=== PATIENT | female | born 1970 | race African-American/Black ===

== ENCOUNTER 2018-04-06 06:14 | Observation (INO) | payer OTHER ==
[2018-04-06 06:31] VITALS: BMI 30.1
--- NOTE | 2018-04-06 07:41 | PDOC ---
Attending Attestation - Resident Resident Name: Steve Rod - ED Attending Attestation I have performed the following: I have examined & evaluated the patient, The case was reviewed & discussed with the resident, I agree w/resident's findings & plan, Exceptions are as noted - HPI HPI: 04/06/18 08:07 48y F no pmhx s/p breast reduction surgery and abdominoplasty on 03/22 presents with wanting her drains out. Pt states she was in a facility in [place] for the surgery and post op and then came back to [facility]. She also got prophlactic clindamycin that she completed. pt notes some aching in her breast and abdomen, and has only been taking some tylenol for pain. Pt notes she has had some discharge from her breast and has changing drsessings twice daily. Pt notes she had drains in her abdomen that has been producing approx 25cc of dark red discharge. Pt denies any fever/chills, increasing pain over the past few days, cough, sob, cp, n/v, back pain, dysuria, hematuria. GENERAL: The patient is awake, alert, and fully oriented, Nontoxic - in no acute distress. HEAD: Normocephalic, atraumatic. EYES: extraocular movements intact, sclera anicteric, conjunctiva clear. ENT: Normal voice, Moist mucous membranes. NECK: Normal range of motion, supple LUNGS: Breath sounds equal, clear to auscultation bilaterally. No wheezes, no rhonchi, no rales. HEART: tachycardic w/o any murmurs. ABDOMEN: Soft, nontender, normoactive bowel sounds. No guarding, no rebound. No CVA tenderness, abdominoplasty wounds - On R drain site, there is wound dehicense approx 4cm without surrounding erythema/inudration, discharge, L drain site is clear. EXTREMITIES: Normal range of motion, no edema. No clubbing or cyanosis. No cords, erythema, or tenderness. NEUROLOGICAL: No facial assymetry, Normal speech, PSYCH: Normal mood, normal affect. SKIN: induration/swelling underneath breasts along wound with whitish areas c/w necrosis bilaterally, AP - presenting 15 days s/p plastic surgery with evidence of wound dehicense and areas of induration/redness under her breasts concern for possible infection, HR 127, but afebrile - will give fluids will obtain blood cultures and wound cultures will reassess Surgeon - Dr. Gomez ([place]) [phone] - Physicial Exam PE: 04/06/18 16:58 see above - Medical Decision Making 04/06/18 12:43 Patient's ultrasound and noted for a collection Will admit the patient for further management and surgical consultation Heart Score/ECG Review - ECG Impressions Comment:: 04/06/18 12:46 Twelve-lead EKG was performed and reviewed by me. There is normal sinus rhythm with a normal rate. Rate of 97 The axis is normal. The intervals are normal. There is normal R wave progression There are no ST or T wave abnormalities. Impression: Normal twelve-lead EKG
[2018-04-06] MEDS ORDERED: SODIUM CHLORIDE 1,000 ML IV ONE (07:44)
--- NOTE | 2018-04-06 08:10 | PDOC ---
History of Present Illness - General Chief Complaint: Revisit,Wound Recheck Stated Complaint: WOUND PROBLEM, S/P SURGERY Time Seen by Provider: 04/06/18 07:08 History Source: Patient Exam Limitations: No Limitations - History of Present Illness Initial Comments: 04/06/18 08:04 The patient is a 48F with no PMH who presents to the ER with complaints of wound closure and drain removal. The patient states that she had an abdominoplasty and breast reduction on March 22, [address] Gomez in [place]. She describes an uncomplicated post-op course where she followed up at the [address] op [address] Gomez. She stayed in a "recover room" which is a facility staffed by MD's and RN's to check on her status during the 1 week post op. She says she had no complications. Over the past week, she states she's had increased drainage from her wounds and an opening on the R side of her abdominoplasty wound. She denies any pus drainage, tenderness, fever, chills, nausea, vomiting, CP, SOB. Past History - Past Medical History Allergies/Adverse Reactions: Allergies Allergy/AdvReac Type Severity Reaction Status Date / Time No Known Allergies Allergy Verified 04/06/18 06:28 Home Medications: Ambulatory Orders Acetaminophen [Tylenol] 325 mg PO QID PRN 04/06/18 Eszopiclone [Lunesta -] 3 mg PO HS PRN 04/06/18 Pentoxifylline [Trental -] 400 mg PO BID 04/06/18 COPD: No - Surgical History Abdominal Surgery: Yes ([facility]) - Suicide/Smoking/Psychosocial Hx Smoking History: Never smoked Review of Systems - Review of Systems Able to Perform ROS?: Yes Comments:: 04/06/18 08:11 GENERAL/CONSTITUTIONAL: No fever or chills. No weakness. HEAD, EYES, EARS, NOSE AND THROAT: No change in vision. No ear pain or discharge. No sore throat. CARDIOVASCULAR: No chest pain, palpitations, or lightheadedness. RESPIRATORY: No cough, wheezing, shortness of breath, or hemoptysis. GASTROINTESTINAL: No nausea, vomiting, diarrhea, constipation, or abdominal pain. GENITOURINARY: No dysuria, frequency, hematuria, or change in urination. MUSCULOSKELETAL: No joint or muscle swelling or pain. No neck or back pain. SKIN: Positive for wound opening and drainage from wounds. No rash or lesions. NEUROLOGIC: No headache, numbness, tingling, weakness, loss of consciousness, or change in strength/sensation. ENDOCRINE: No increased thirst. No abnormal weight change. HEMATOLOGIC/LYMPHATIC: No anemia, easy bleeding, or history of blood clots. ALLERGIC/IMMUNOLOGIC: No hives or skin allergy. Is the patient limited Greek proficient: No *Physical Exam - Vital Signs Last Vital Signs Temp Pulse Resp BP Pulse Ox 98.6 F 127 H 18 122/72 100 04/06/18 06:29 04/06/18 06:29 04/06/18 06:29 04/06/18 06:29 04/06/18 06:29 - Physical Exam Comments: 04/06/18 08:12 GENERAL: Well developed, well nourished. Awake and alert. No acute distress. HEENT: Normocephalic, atraumatic. Hearing grossly normal. Moist mucous membranes. PERRLA, EOMI. No conjunctival pallor. Sclera are non-icteric. NECK: Supple. Full ROM. No JVD. CARDIOVASCULAR: Regular rate and rhythm. No murmurs, rubs, or gallops. PULMONARY: No evidence of respiratory distress. Lungs clear to auscultation bilaterally. No wheezing, rales or rhonchi. ABDOMINAL: Inferior abdominoplasty incision present, intact except for a 4cm dehisced portion on R lateral side - nontender and nonerythematous. Drains present on b/l sides with dark red drainage. Soft. Non-tender. Non-distended. No rebound or guarding. No organomegaly. Normoactive bowel sounds. GENITOURINARY: No CVA tenderness bilaterally. MUSCULOSKELETAL: Normal range of motion at all joints. No bony deformities or tenderness. EXTREMITIES: No cyanosis. No clubbing. No edema. No calf tenderness. SKIN: B/l breast reduction scars present on inferior portion of b/l breasts. Possible pustular drainage from L breast. Nontender and nonerythematous scars. Raw epithelial tissue appreciated. Otherwise, warm and dry. Normal capillary refill. No rashes. No jaundice. NEUROLOGICAL: Alert, awake, appropriate. Cranial nerves 2-12 intact. Normal speech. Gait is normal without ataxia. PSYCHIATRIC: Cooperative. Good eye contact. Appropriate mood and affect. ED Treatment Course - LABORATORY CBC & Chemistry Diagram: 04/06/18 08:20 04/06/18 08:20 Medical Decision Making - Medical Decision Making 04/06/18 08:15 The patient is a 48F with no PMH who presents for a wound check and drainage removal. Of note, there was an open wound which did not look erythematous or infected, but she had pus and dried pus crusted on the inferior portion of b/l breast incisions. The patient is tachycardic so I will order an EKG, as well as blood cultures, CBC, CMP to evaluate for signs of infections. 04/06/18 11:54 CBC and CMP WNL. Pending U/S read of breast tissue. Will discuss with plastics after. 04/06/18 13:01 U/S indicates a large septated fluid collection 6x1.2cm on inferior R breast. I have discussed the patient with Dr. Pérez who will see the patient out on an outpatient basis. I have paged Dr. Gomez for a call. Pt is continously requesting for her drains to be removed. I have instructed her that I will not be removing them as they are still draining. 04/06/18 14:06 I have spoken to Dr. Danial Stroud who accepts admission for obs. Will give abx. Dr. Pérez consulted for plastics. *DC/Admit/Observation/Transfer Diagnosis at time of Disposition: Wound dehiscence - Discharge Dispostion Condition at time of disposition: Stable Decision to Admit order: Yes - Referrals Referrals: Vasile Stroud MD [Primary Care Provider] - - Patient Instructions - Post Discharge Activity
[2018-04-06 08:42] LABS: BASO % 1.4 % (0-2.0); EOS % 2.2 % (0-4.5); HEMATOCRIT 28.8 % (32.4-45.2); HEMOGLOBIN 9.6 GM/dL (10.7-15.3); LYMPH % 19.1 % (8-40); MCH 30.3 pg (25.7-33.7); MCHC 33.5 g/dl (32.0-36.0); MEAN CELL VOLUME 90.3 fl (80-96); MEAN PLT VOLUME 6.3 fl (7.5-11.1); MONO % 12.3 % (3.8-10.2); PLATELET COUNT 819 K/MM3 (134-434); RBC 3.19 M/mm3 (3.60-5.2); RDW 13.8 % (11.6-15.6); WHITE BLOOD COUNT 8.3 K/mm3 (4.0-10.0)
[2018-04-06 09:05] LABS: ALBUMIN 2.9 g/dl (3.4-5.0); ALK PHOS 95 U/L (45-117); ANION GAP 11 (8-16); BILIRUBIN,TOTAL 0.3 mg/dL (0.2-1.0); BLOOD UREA NITROGEN 12 mg/dL (7-18); CALCIUM 9.2 mg/dL (8.5-10.1); CHLORIDE 104 mmol/L (98-107); CO2 27 mmol/L (21-32); CREATININE 0.7 mg/dL (0.55-1.02); GLUCOSE,RANDOM 81 mg/dL (74-106); POTASSIUM 4.4 mmol/L (3.5-5.1); SGOT/AST 19 U/L (15-37); SGPT/ALT 45 U/L (12-78); SODIUM 142 mmol/L (136-145); TOT PROT 7.4 g/dl (6.4-8.2)
[2018-04-06] MEDS ORDERED: VANCOMYCIN 1,000 MG in DEXTROSE 5%-WATER - 250 ML IVPB ONE (12:44)
[2018-04-06] MEDS ORDERED: CEFTRIAXONE 1,000 MG in DEXTROSE 5%-WATER - 50 ML IVPB ONE (12:45)
[2018-04-06] MEDS ORDERED: VANCOMYCIN 1 GRAM (PRE-DOCKED) 1,000 MG/250 ML BAG IVPB ONE (14:02)
[2018-04-06] MEDS ORDERED: CEFTRIAXONE 1 GM/50 ML BAG ONE (14:02)
[2018-04-06 17:18] VITALS: BP 109/56; PULSE 95; TEMP 98.1
--- NOTE | 2018-04-06 18:27 | HP ---
Admitting History and Physical - Admission Chief Complaint: pt went to [facility]. develooed wd infeec? nissa drains intact draining History Source: Patient Limitations to Obtaining History: No Limitations - Past Medical History Gastrointestinal: Yes: Other (nissa drains intact) ...: No Heme/Onc: Yes: Anemia Infectious Disease: Yes: Other (? abd wd) - Past Surgical History Past Surgical History: Yes: None - Smoking History Smoking history: Never smoked - Alcohol/Substance Use Hx Alcohol Use: No - Social History Usual Living Arrangement: Yes: Alone History of Recent Travel: Yes ([place]) Home Medications - Allergies Allergies/Adverse Reactions: Allergies Allergy/AdvReac Type Severity Reaction Status Date / Time No Known Allergies Allergy Verified 04/06/18 06:28 - Home Medications Home Medications: Ambulatory Orders Acetaminophen [Tylenol] 325 mg PO QID PRN 04/06/18 Eszopiclone [Lunesta -] 3 mg PO HS PRN 04/06/18 Pentoxifylline [Trental -] 400 mg PO BID 04/06/18 Family Disease History - Family Disease History Family History: Unremarkable Physical Examination Vital Signs: Vital Signs Temperature 98.1 F 04/06/18 17:14 Pulse Rate 95 H 04/06/18 17:14 Respiratory Rate 18 04/06/18 17:14 Blood Pressure 109/56 04/06/18 17:14 O2 Sat by Pulse Oximetry (%) 100 04/06/18 17:14 Labs: CBC, BMP 04/06/18 08:20 04/06/18 08:20 Assessment/Plan plastic sx cbc in am
[2018-04-06] MEDS ORDERED: SODIUM CHLORIDE 1,000 ML IV SCH (18:30)
[2018-04-06] MEDS ORDERED: LIDOCAINE HCL 1%, 10 MG/ML (20ML VIAL) ONE (19:25)
[2018-04-06] MEDS ORDERED: LIDOCAINE HCL 2% (20ML MULTI-DOSE VIAL) NR ONE (19:44)
--- NOTE | 2018-04-06 20:23 | CONSULT ---
Consult Consult Specialty:: Plastic Surgery Referred by:: Danial Stroud MD - Past Medical History Gastrointestinal: Yes: Other (nissa drains intact) ...: No Infectious Disease: Yes: Other (? abd wd) - Past Surgical History Past Surgical History: Yes: None - Alcohol/Substance Use Hx Alcohol Use: No - Smoking History Smoking history: Never smoked - Social History History of Recent Travel: Yes ([place]) Home Medications - Allergies Allergies/Adverse Reactions: Allergies Allergy/AdvReac Type Severity Reaction Status Date / Time No Known Allergies Allergy Verified 04/06/18 06:28 - Home Medications Home Medications: Ambulatory Orders Acetaminophen [Tylenol] 325 mg PO QID PRN 04/06/18 Eszopiclone [Lunesta -] 3 mg PO HS PRN 04/06/18 Pentoxifylline [Trental -] 400 mg PO BID 04/06/18 Physical Exam Vital Signs: Vital Signs Temperature 98.1 F 04/06/18 17:14 Pulse Rate 95 H 04/06/18 17:14 Respiratory Rate 18 04/06/18 17:14 Blood Pressure 109/56 04/06/18 17:14 O2 Sat by Pulse Oximetry (%) 100 04/06/18 17:14 Labs: CBC, BMP 04/06/18 08:20 04/06/18 08:20 Assessment/Plan Patient is a 48 year old woman who is 2 weeks s/p Bilateral Reduction Mammaplasty and Abdominoplasty by Dr. Gomez in [place]. She remained in [place] for one week after the procedure and was sent home to [place] with bilateral ackson- Law drains in the abdomen. She presents with open wounds of both breasts with purulent drainage. There is also a large open wound of the right abdomen. Physical Examination of the breasts reveals partial nipple/areola (NAC) complex loss on both sides with areas that are depigmented and other areas of full- thickness areola loss. The right vertical limb is open and draining with pus easily milked from the lateral breast. There is full thickness skin loss over the lower half of the vertical limb mostly on the lateral flap approximately 1.5 cm in width. The left breast vertical limb is open over the full length extending to the inframammary fold laterally approximately 2cm. Physical Exam of the abdomen reveals a soft abdomen with a large full-thickness dehiscence of the lateral wound around the drain measuring approximately 12 cm x 5 cm. Both abdominal drains were removed. The open right side wound was explored and undermines medially as far as the examining finger can reach. The wound was packed with Kerlix. The right5 breast was infiltrated with plain lidocaine solution about the vertical limb and right side [id number] fold. This area was opened and necrotic skin was debrided. Significant necrotic tissue over the pedicle was debrided. A large pus-filled cavity laterally was drained and irrigated. The wound was packed with Kerlix. A similar procedure was performed to the left breast. A large cavity extended beneath the pedicle. It was drained, irrigated and packed. Wounds were dressed and dressings were secured. The patient declined admission. She will be discharged on antibiotics and will be seen for dressing changes tomorrow in the office.
--- NOTE | 2018-04-06 20:52 | DS ---
Physical Examination Vital Signs: Vital Signs Temperature 98.1 F 04/06/18 17:14 Pulse Rate 95 H 04/06/18 17:14 Respiratory Rate 18 04/06/18 17:14 Blood Pressure 109/56 04/06/18 17:14 O2 Sat by Pulse Oximetry (%) 100 04/06/18 17:14 Labs: CBC, BMP 04/06/18 08:20 04/06/18 08:20 Discharge Summary Reason For Visit: DEHISCENCE OF WOUND Current Active Problems Wound dehiscence (Acute) Condition: Stable - Instructions Referrals: Vasile Stroud MD [Primary Care Provider] - Disposition: HOME - Home Medications Comprehensive Discharge Medication List: Ambulatory Orders Acetaminophen [Tylenol] 325 mg PO QID PRN 04/06/18 Eszopiclone [Lunesta -] 3 mg PO HS PRN 04/06/18 Pentoxifylline [Trental -] 400 mg PO BID 04/06/18
--- NOTE | 2018-04-06 20:53 | PN ---
Progress Note, Physician Chief Complaint: dr adria watts rt breast stated can go home f/u with him in am - Current Medication List Current Medications: Active Medications Sodium Chloride (Normal Saline -) 1,000 mls @ 42 mls/hr IV ASDIR MI - Objective Vital Signs: Vital Signs Temperature 98.1 F 04/06/18 17:14 Pulse Rate 95 H 04/06/18 17:14 Respiratory Rate 18 04/06/18 17:14 Blood Pressure 109/56 04/06/18 17:14 O2 Sat by Pulse Oximetry (%) 100 04/06/18 17:14 Labs: CBC, BMP 04/06/18 08:20 04/06/18 08:20
--- NOTE | 2018-04-11 11:06 | PATH ---
Surgical Pathology Report Patient Name: SALOMÓN LINDSEY [facility]. Rec. #: [id number] /Age/Gender: 1970 (Age: 48) / F Account: [id number] Location: EMERGENCY ROOM Taken: 04/06/2018 Received: 04/07/2018 Reported: 04/11/2018 Physicians: Franki Pérez M.D. Specimen(s) Received A: RIGHT BRERAST TISSUE B: LEFT BREAST TISSUE Clinical History Bilateral breast infection status post breast reduction Final Diagnosis A. RIGHT BREAST TISSUE, BIOPSY: FIBROADIPOSE TISSUE SHOWING SEVERE ACUTE INFLAMMATION WITH ABSCESS FORMATION. B. LEFT BREAST TISSUE, BIOPSY: FIBROADIPOSE TISSUE SHOWING SEVERE ACUTE INFLAMMATION WITH ABSCESS FORMATION. Electronically Signed Norma Galindo M.D. Gross Description A. Received fresh labeled "right breast," is a 3.4 x 2.8 x 0.4 cm aggregate of brown brown, necrotic soft tissue. A open claims representative portion is submitted in one cassette. B. Received fresh labeled "left breast," is a 4.0 x 2.0 x 0.4 cm aggregate of brown brown, necrotic skin and soft tissue. A open claims representative portion is submitted in one cassette. /04/07/2018 [place]/04/07/2018
--- NOTE | 2018-04-13 16:23 | EKG ---
Test Reason : Blood Pressure : / mmHG Vent. Rate : 097 BPM Atrial Rate : 097 BPM P-R Int : 128 ms QRS Dur : 086 ms QT Int : 366 ms P-R-T Axes : 046 046 022 degrees QTc Int : 464 ms NORMAL SINUS RHYTHM NORMAL ECG NO PREVIOUS ECGS AVAILABLE Confirmed by AVILA JAMES MD ([id number]) on 04/13/2018 4:23:32 PM Referred By: Confirmed By:AVILA JAMES MD
== END 2018-04-06 22:50 | disposition home or self-care (01) ==
LOC: JER 06:14 → JERBED 14:07
PROVIDERS: ADMIT Family Medicine; ATTEND Family Medicine
PROC: 0HBVXZZ (ICD-10-PCS; principal; 2018-04-06)
PROC: 0H95XZZ Drainage of Chest Skin, External Approach (ICD-10-PCS; 2018-04-06)
PROC: 3E03329 Introduction of Other Anti-infective into Peripheral Vein, Percutaneous Approach (ICD-10-PCS; 2018-04-06)
PROC: 3E0337Z Introduction of Electrolytic and Water Balance Substance into Peripheral Vein, Percutaneous Approach (ICD-10-PCS; 2018-04-06)
DX: T81.31XA Disruption of external operation (surgical) wound, not elsewhere classified, initial encounter (principal); Y83.8 Other surgical procedures as the cause of abnormal reaction of the patient, or of later complication, without mention of misadventure at the time of the procedure; Y92.9 Unspecified place or not applicable; Z98.890 Other specified postprocedural states; Z98.82 Breast implant status
CPT/HCPCS: 36415; 71045-TC-FY; 76642-TC-50; 80053; 85025; 87040; 87070; 87186; 87205; 88304-TC; 93005; 93010; 99283-25; G0378; J7030

== ENCOUNTER 2023-02-15 05:08 | Day surgery (SDC) | payer OTHER ==
[2023-02-10 09:29] VITALS: BMI 29.2
[2023-02-15 06:57] VITALS: RESP 18
[2023-02-15] MEDS ORDERED: PROPOFOL 20 ML ONE ×2 (07:30→07:35)
[2023-02-15] MEDS ORDERED: MIDAZOLAM HCL 2 MG/2 ML SINGLE DOSE VIAL ONE (07:30)
[2023-02-15] MEDS ORDERED: SEVOFLURANE 250 ML BTL ONE (07:36)
[2023-02-15] MEDS ORDERED: oxyCODONE HCL 5 MG TABLET PO PRN ×3 (07:41→07:45)
[2023-02-15] MEDS ORDERED: ONDANSETRON 4 MG/2 ML VIAL IVPUSH PRN ×2 (07:41→07:45)
[2023-02-15] MEDS ORDERED: IBUPROFEN 800 MG/8 ML IJ IVPB PRN (07:45)
[2023-02-15] MEDS ORDERED: IBUPROFEN 600 MG TABLET (FP) PO PRN (07:45)
[2023-02-15] MEDS ORDERED: ELECTROLYTE-148 SOLN 1,000 ML IV SCH (07:45)
[2023-02-15] MEDS ORDERED: KETOROLAC TROMETHAMINE 30 MG/1 ML VIAL ONE (07:45)
[2023-02-15] MEDS ORDERED: LACTATED RINGERS SOLUTION 1,000 ML IV SCH (07:45)
[2023-02-15 10:06] VITALS: BP 111/69; PULSE 89; TEMP 97.9
== END 2023-02-15 10:05 | disposition home or self-care (01) ==
LOC: JASU-SURG 05:08
PROVIDERS: ATTEND Obstetrics & Gynecology
PROC: 0UPD7HZ Removal of Contraceptive Device from Uterus and Cervix, Via Natural or Artificial Opening (ICD-10-PCS; principal; 2023-02-15 07:30)
DX: Z30.432 Encounter for removal of intrauterine contraceptive device (principal)
CPT/HCPCS: 88300-TC; 94760